=== PATIENT | male | born 1975 | race Caucasian/White ===

== ENCOUNTER 2025-03-02 14:10 | Emergency (ER) | payer OTHER | END 2025-03-02 15:42 | disposition home or self-care (01) | LOC: JP.ED 14:10 | DX: S43.102A Unspecified dislocation of left acromioclavicular joint, initial encounter (principal); V19.9XXA Pedal cyclist (driver) (passenger) injured in unspecified traffic accident, initial encounter | CPT/HCPCS: 73000-26-RT; 73000-RT; 73030-26-RT; 73030-RT; 73130-26-LT; 73130-LT; 99284 ==